=== PATIENT | male | born 1995 | race Caucasian/White ===

== ENCOUNTER 2018-05-11 07:09 | Emergency (ER) | payer SELFPAY ==
[~2018-05-11] VITALS: Ht 165.1 cm; Wt 50.0 kg
[~2018-05-11 07:09] MED LIST: CELEXA10 MG PO; GEODON20 MG OR; GUANFACINE; KEFLEX250 MG PO; TRAZODONE50 MG PO; VYVANSE20 MG PO; ZOLOFT50 MG PO; [UNRECOGNIZED DRUG - REMARK]
[2018-05-11 07:51] LABS: URINE BILIRUBIN - DIPSTICK NEGATIVE (NEGATIVE); URINE BLOOD DIPSTICK NEGATIVE (NEGATIVE); URINE COLOR YELLOW; URINE GLUCOSE - DIPSTICK NEGATIVE (NEGATIVE); URINE KETONE NEGATIVE (NEGATIVE); URINE LEUK ESTERASE TRACE (NEGATIVE); URINE NITRITE - DIPSTICK NEGATIVE (Negative); URINE PROTEIN - DIPSTICK NEGATIVE (NEG-TRACE); URINE SPECIFIC GRAVITY 1.015
[2018-05-11] MEDS ORDERED: ZITHROMAX250 MG PO (08:22)
[2018-05-11 09:19] VITALS: BP 130/79
== END 2018-05-11 09:19 | disposition home or self-care (01) | DRG 728 ==
LOC: ED 07:09
PROVIDERS: Emergency Medicine
DX: A60.01 Herpesviral infection of penis (principal); N34.2 Other urethritis; F17.200 Nicotine dependence, unspecified, uncomplicated
CPT/HCPCS: J0561

== ENCOUNTER 2022-02-14 17:25 | Emergency (ER) | payer SELFPAY ==
[~2022-02-14] VITALS: Ht 167.6 cm; Wt 59.0 kg
[~2022-02-14 17:25] MED LIST changes: +ZITHROMAX250 MG PO
[2022-02-14 18:24] VITALS: BP 118/71
== END 2022-02-14 18:28 | disposition home or self-care (01) | DRG 556 ==
LOC: ED 17:25
DX: M79.641 Pain in right hand (principal); X50.0XXA Overexertion from strenuous movement or load, initial encounter

== ENCOUNTER 2022-03-08 08:35 | Emergency (ER) | payer SELFPAY ==
[~2022-03-08] VITALS: Ht 167.6 cm; Wt 63.0 kg
[2022-03-08 08:40] VITALS: BP 130/85
[2022-03-08 08:45] VITALS: BP 116/69
[2022-03-08 09:53] LABS: HEMATOCRIT 40.7 % (39.0-50.0); HEMOGLOBIN 13.9 g/dl (14.0-18.0); IMMATURE GRANULOCYTES 0.3 % (0.0-5.0); MEAN CELL VOLUME 94.4 fL CALC (80.0-100.0); MEAN CORPUSCULAR HGB 32.3 pG CALC (26.0-32.0); MEAN CORPUSCULAR HGB CONC 34.2 g/dL CAL (32.0-36.0); NEUT# 3.87 thou/uL (1.82-7.42); RED BLOOD COUNT 4.31 mill/uL (4.70-6.10); RED CELL DISTRI WIDTH 12.1 % (11.5-15.5)
[2022-03-08 10:04] LABS: URINE BILIRUBIN - DIPSTICK NEGATIVE (NEGATIVE); URINE BLOOD DIPSTICK NEGATIVE (NEGATIVE); URINE COLOR YELLOW; URINE GLUCOSE - DIPSTICK NEGATIVE (NEGATIVE); URINE KETONE NEGATIVE (NEGATIVE); URINE LEUK ESTERASE NEGATIVE (NEGATIVE); URINE PROTEIN - DIPSTICK NEGATIVE (NEG-TRACE); URINE UROBILINOGEN - DIPSTICK 0.2 E.U./dL (0.2)
[2022-03-08 10:05] LABS: URINE NITRITE - DIPSTICK NEGATIVE (Negative)
[2022-03-08 10:10] LABS: ALBUMIN 4.3 g/dL (3.2-5.0); ALKALINE PHOSPHATASE 79 u/l (38-126); BUN 11 mg/dL (9-20); BUN/CREATININE RATIO 13 (12-20 (CALC)); CHLORIDE 107 mmol/l (95-108); CREATININE 0.8 mg/dL (0.7-1.3); GFR FOR AFR.AMER. > 60 ML/MIN (>=60 (CALC)); GFR OTHER RACES > 60 ML/MIN (>=60 (CALC)); LIPASE 80 u/l (23-300); SGOT/AST 23 u/l (17-59); SODIUM 141 mmol/l (137-146); TOTAL PROTEIN 6.7 g/dL (6.3-8.2)
[2022-03-08 10:12] LABS: ANION GAP 11 (6-22 (CALC)); BILIRUBIN, TOTAL 0.2 mg/dL (0.0-1.4); CARBON DIOXIDE 28 mmol/l (22-30); POTASSIUM 4.7 mmol/l (3.5-5.1)
[2022-03-08] MEDS ORDERED: AMOXICILLIN500 M2 PO (10:14)
[2022-03-08] MEDS ORDERED: PROTONIX40 M2 PO (10:14)
[2022-03-08 10:22] VITALS: BP 116/69
== END 2022-03-08 10:33 | disposition home or self-care (01) | DRG 153 ==
LOC: ED 08:35
PROVIDERS: Family Medicine
DX: J32.0 Chronic maxillary sinusitis (principal); R10.13 Epigastric pain; F17.210 Nicotine dependence, cigarettes, uncomplicated

== ENCOUNTER 2022-07-08 21:27 | Emergency (ER) | payer SELFPAY ==
[~2022-07-08] VITALS: Ht 167.6 cm; Wt 59.0 kg
[~2022-07-08 21:27] MED LIST changes: +AMOXICILLIN500 M2 PO; +PROTONIX40 M2 PO
[2022-07-08 22:07] VITALS: BP 112/64
[2022-07-08] MEDS ORDERED: BACTRIM DS1 TAB PO (22:28)
[2022-07-08] MEDS ORDERED: BACITRACIN3.5 GM TOP (22:28)
[2022-07-08 23:06] LABS: BASO% 0.9 % (0-3); EOS% 1.2 % (0-8); HEMATOCRIT 38.3 % (39.0-50.0); HEMOGLOBIN 12.8 g/dl (14.0-18.0); MEAN CELL VOLUME 92.5 fL CALC (80.0-100.0); MEAN CORPUSCULAR HGB 30.9 pG CALC (26.0-32.0); MEAN CORPUSCULAR HGB CONC 33.4 g/dL CAL (32.0-36.0); MONO% 10.8 % (2-13); NEUT# 2.91 thou/uL (1.82-7.42); NEUT% 43.1 % (42-76); RED BLOOD COUNT 4.14 mill/uL (4.70-6.10); RED CELL DISTRI WIDTH 12.1 % (11.5-15.5)
[2022-07-08 23:54] LABS: ALBUMIN 4.5 g/dL (3.2-5.0); ALKALINE PHOSPHATASE 49 u/l (38-126); ANION GAP 15 (6-22 (CALC)); BILIRUBIN, TOTAL 0.4 mg/dL (0.2-1.3); BUN 15 mg/dL (9-20); BUN/CREATININE RATIO 17 (12-20 (CALC)); CARBON DIOXIDE 25 mmol/l (22-30); CHLORIDE 103 mmol/l (95-108); CREATININE 0.9 mg/dL (0.7-1.3); GFR FOR AFR.AMER. > 60 ML/MIN (>=60 (CALC)); GFR OTHER RACES > 60 ML/MIN (>=60 (CALC)); POTASSIUM 3.5 mmol/l (3.5-5.1); SGOT/AST 26 u/l (17-59); SODIUM 139 mmol/l (137-146); TOTAL PROTEIN 6.9 g/dL (6.3-8.2)
== END 2022-07-08 23:42 | disposition home or self-care (01) | DRG 607 ==
LOC: ED 21:27
PROVIDERS: Emergency Medicine
DX: S70.322A Blister (nonthermal), left thigh, initial encounter (principal); X58.XXXA Exposure to other specified factors, initial encounter

== ENCOUNTER 2022-07-24 15:39 | Emergency (ER) | payer SELFPAY ==
[~2022-07-24 15:39] MED LIST changes: +BACITRACIN3.5 GM TOP; +BACTRIM DS1 TAB PO
[2022-07-25] MEDS ORDERED: OMNI-PAC300 MG PO (08:24)
[2022-07-25] MEDS ORDERED: ZOFRAN4 MG/TAB PO (08:24)
== END 2022-07-24 17:17 | disposition home or self-care (01) | DRG 951 ==
LOC: ED 15:39 → LWOBS 17:17
DX: Z53.21 Procedure and treatment not carried out due to patient leaving prior to being seen by health care provider (principal)

== ENCOUNTER 2022-07-25 08:08 | Emergency (ER) | payer SELFPAY ==
[~2022-07-25] VITALS: Ht 167.6 cm; Wt 65.0 kg
[2022-07-25 08:13] VITALS: BP 130/87
[2022-07-25] MEDS ORDERED: OMNI-PAC300 MG PO (08:24)
[2022-07-25] MEDS ORDERED: ZOFRAN4 MG/TAB PO (08:24)
[2022-07-25 08:30] VITALS: BP 109/74
[2022-07-25 08:34] VITALS: BP 109/74
== END 2022-07-25 08:46 | disposition home or self-care (01) | DRG 156 ==
LOC: ED 08:08
DX: S02.2XXA Fracture of nasal bones, initial encounter for closed fracture (principal); Y04.0XXA Assault by unarmed brawl or fight, initial encounter; F17.210 Nicotine dependence, cigarettes, uncomplicated